=== PATIENT | female | born 2000 | race Caucasian/White ===

== ENCOUNTER 2023-06-05 00:22 | Emergency (ER) | payer MEDICAID ==
[~2023-06-05] VITALS: Ht 157.5 cm; Wt 73.2 kg
[2023-06-05 00:32] VITALS: PULSE 110
[2023-06-05 00:42] VITALS: BP 132/85; RESP 14; TEMP 98.2; O2SAT 98
[2023-06-05 01:01] LABS: BASOPHILS % 0.2 % (0.0-2.0); EOSINOPHILS % 1.9 % (0.0-5.0); HEMATOCRIT. 32.5 % (36.0-48.0); HEMOGLOBIN. 10.5 g/dL (12.0-16.0); LYMPHOCYTES % 10.1 % (20.0-50.0); MEAN CORPUSCULAR HEMOGLOBIN 28.5 pg (28.0-32.0); MEAN CORPUSCULAR HGB CONC 32.4 g/dL (31.0-37.0); MEAN CORPUSCULAR VOLUME 87.8 fL (81.0-99.0); MEAN PLATELET VOLUME 8.6 fl (7.4-10.4); MONOCYTES % 10.7 % (2.0-8.0); NEUTROPHILS % 77.1 % (40.0-76.0); PLATELET 325 x1000/uL (130-400); RED CELL DISTRIBUTION WIDTH 13.4 % (11.6-14.6)
[2023-06-05 01:11] LABS: CHLORIDE 107 mEq/L (98-107); INDEX HEMOLYSI 1 (1-3); INDEX ICTERIC 1 (1-4); INDEX LIPEMIC 1 (1-3); POTASSIUM 3.4 mEq/L (3.5-5.1); SODIUM 138 mEq/L (136-145)
[2023-06-05 01:12] LABS: CLARITY URINE CLOUDY (CLEAR); COLOR URINE YELLOW (YELLOW); GLUCOSE URINE NEGATIVE (NEGATIVE); KETONES URINE NEGATIVE (NEGATIVE); LEUKOCYTE ESTERASE URINE 1+ (NEGATIVE); NITRITE URINE NEGATIVE (NEGATIVE); OCCULT BLOOD URINE NEGATIVE (NEGATIVE); PROTEIN URINE NEGATIVE (NEGATIVE); SPECIFIC GRAVITY URINE 1.013 (1.005-1.030)
[2023-06-05 01:15] LABS: RBC URINE 0-2 /hpf (0-2); SQUAMOUS EPITHELIAL CELL URINE 1+ /lpf (RARE/1+); YEAST URINE NONE SEEN
[2023-06-05 01:21] LABS: ALANINE AMINOTRANSFERASE 42 IU/L (13-61); ALBUMIN 2.8 g/dL (3.4-5.0); ASPARTATE AMINOTRANSFERASE 27 IU/L (15-37); BILIRUBIN TOTAL 0.1 mg/dL (0.1-1.0); CALCIUM 8.2 mg/dL (8.5-10.1); CARBON DIOXIDE 23 mEq/L (21-32); CREATININE 0.5 mg/dL (0.6-1.3); GLUCOSE 109 mg/dL (70-105); PROTEIN TOTAL 6.8 g/dL (6.0-8.3); UREA NITROGEN BLOOD 3 mg/dL (7-21)
[2023-06-05 01:36] LABS: BACTERIA URINE TRACE
[2023-06-05 01:42] LABS: TROPONIN I HIGH SENSITIVITY < 4 ng/L (<54)
[2023-06-05] MEDS ORDERED: ACETAMINOPHEN 325MG TABLET PO ONE (02:15)
== END 2023-06-05 08:05 | disposition home or self-care (01) ==
LOC: ER 00:46
DX: R07.89 Other chest pain (principal); M54.9 Dorsalgia, unspecified
CPT/HCPCS: 36415; 80053; 81003; 81025; 84484; 85025; 93005; 99284